=== PATIENT | male | born 2000 | race Caucasian/White ===

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

== ENCOUNTER 2019-04-29 23:38 | Emergency (ER) | payer OTHER ==
[2019-04-30 00:05] VITALS: BP 106/58; PULSE 84; RESP 14; TEMP 97.9
--- NOTE | 2019-04-30 00:37 | ED ---
Psych HPI - General Chief Complaint: Psychiatric Symptoms Stated Complaint: Mental Health Time Seen by Provider: 04/30/19 00:12 Source: patient, family Mode of arrival: ambulatory - History of Present Illness Initial Comments: This patient is a 18-year-old man who presents to be evaluated for compulsive stealing. Patient also reportedly had altercation with family and then had threatened to kill his sister as well as kill himself. Patient states that the convulsions to steal a been going on for months. [facility] is [facility], and Dr. García is also managing his medications. He is currently taking as well as lithium. He states that he is compliant with his medications. MD Complaint: other -: month(s) Associated Psychiatric Symptoms: other History of same: Yes Quality: constant Improves With: none Worsens With: none Associated Symptoms: denies other symptoms - Related Data Home Medications Medication Instructions Recorded Confirmed [place] Carbonate 300 mg PO HS 04/30/19 04/30/19 Sertraline [Zoloft] 200 mg PO DAILY 04/30/19 Allergies Allergy/AdvReac Type Severity Reaction Status Date / Time No Known Allergies Allergy Verified 04/30/19 00:05 Review of Systems ROS Statement: Those systems with pertinent positive or pertinent negative responses have been documented in the HPI. ROS Other: All systems not noted in ROS Statement are negative. Constitutional: Denies: fever, chills Respiratory: Denies: cough, dyspnea Cardiovascular: Denies: chest pain, palpitations, syncope Gastrointestinal: Denies: abdominal pain, vomiting, diarrhea Genitourinary: Denies: dysuria Musculoskeletal: Denies: back pain Skin: Denies: rash Neurological: Denies: headache, weakness, numbness Psychiatric: Reports: as per HPI, other (Compulsive stealing). Denies: depression, auditory hallucinations, visual hallucinations Past Medical History Past Medical History: No Reported History History of Any Multi-Drug Resistant Organisms: None Reported Past Surgical History: No Surgical Hx Reported Past Psychological History: Anxiety, Depression Smoking Status: Current every day smoker Past Alcohol Use History: None Reported Past Drug Use History: None Reported General Exam Limitations: no limitations General appearance: alert, in no apparent distress Head exam: Present: atraumatic, normocephalic Eye exam: Present: normal appearance. Absent: scleral icterus, conjunctival injection ENT exam: Present: normal oropharynx Respiratory exam: Present: normal lung sounds bilaterally. Absent: respiratory distress, wheezes, rales, rhonchi, stridor Cardiovascular Exam: Present: regular rate, normal rhythm, normal heart sounds. Absent: systolic murmur, diastolic murmur, rubs, gallop GI/Abdominal exam: Present: soft. Absent: distended, tenderness, guarding, rebound, rigid, mass Extremities exam: Present: normal inspection, normal capillary refill. Absent: pedal edema, calf tenderness Back exam: Present: normal inspection. Absent: CVA tenderness (R), CVA tenderness (L) Neurological exam: Present: alert Psychiatric exam: Present: normal affect, normal mood, other (Complains of compulsive thoughts of stealing). Absent: depressed, agitated, anxious, flat affect, manic Skin exam: Present: warm, dry, intact, normal color. Absent: rash Course Vital Signs 04/29/19 23:57 Temperature 97.9 F Pulse Rate 84 Respiratory 14 Rate Blood Pressure 106/58 O2 Sat by Pulse 99 Oximetry Disposition Clinical Impression: Behavioral disorder Disposition: HOME SELF-CARE Condition: Fair Instructions (If sedation given, give patient instructions): Conduct Disorder (ED) Is patient prescribed a controlled substance at d/c from ED?: No Referrals: Mickey Ventura MD [Primary Care Provider] - 1-2 days
== END 2019-04-30 02:48 | disposition home or self-care (01) ==
LOC: EC 23:38
DX: F63.2 Kleptomania (principal); R45.850 Homicidal ideations; R45.851 Suicidal ideations; F32.9 Major depressive disorder, single episode, unspecified; F41.9 Anxiety disorder, unspecified; F17.200 Nicotine dependence, unspecified, uncomplicated; Z79.899 Other long term (current) drug therapy
CPT/HCPCS: 82075; 99285

== ENCOUNTER 2019-07-16 11:24 | Emergency (ER) | payer OTHER ==
[2019-07-16 11:42] VITALS: RESP 18
--- NOTE | 2019-07-16 12:26 | ED ---
Psych HPI - General Chief Complaint: Psychiatric Symptoms Stated Complaint: Mental health Time Seen by Provider: 07/16/19 11:38 Source: patient, family Mode of arrival: ambulatory - History of Present Illness Initial Comments: 18yo male presented for suicidal thoughts. Patient is brought in by mother he was petitioned for evaluation. Patient states that he found out there was a warrant out for his arrest this caused him significant stress andhe felt like he disappointed to his parents. This caused him to become very anxious this morning. He states he left the house in a fury, family bedside states they werent home but he was calling them appearing manic like. He states he began driving around. Patient states that he did not be a burden to his parents anymore, family fel this comment was alarming for suicidal ideation and patient was brought to the ER for evaluaton. Upon arrival patient denies any suicidal or homicidal ideation. He states he regrets making that comment. He states he does not want to be here. He states he he did settle things out of stress in fear of having a worn out for his arrest. remaining ROS (-). - Related Data Home Medications Medication Instructions Recorded Confirmed [place] Carbonate 600 mg PO HS 04/30/19 07/16/19 Sertraline [Zoloft] 50 mg PO DIRECTED 04/30/19 07/16/19 ARIPiprazole [Abilify] 5 mg PO DIRECTED 07/16/19 07/16/19 Levothyroxine Sodium [Synthroid] 50 mcg PO DAILY 07/16/19 07/16/19 Allergies Allergy/AdvReac Type Severity Reaction Status Date / Time No Known Allergies Allergy Verified 07/16/19 12:02 Review of Systems ROS Statement: Those systems with pertinent positive or pertinent negative responses have been documented in the HPI. ROS Other: All systems not noted in ROS Statement are negative. Past Medical History Past Medical History: No Reported History History of Any Multi-Drug Resistant Organisms: None Reported Past Surgical History: No Surgical Hx Reported Past Psychological History: Anxiety, Depression Smoking Status: Current every day smoker Past Alcohol Use History: None Reported Past Drug Use History: None Reported General Exam - General Exam Comments Initial Comments: General: The patient is awake and alert, in no distress, and does not appear acutely ill. Eye: Pupils are equal, round and reactive to light, extra-ocular movements are intact. No nystagmus. There is normal conjunctiva bilaterally. No signs of icterus. Ears, nose, mouth and throat: There are moist mucous membranes and no oral lesions. Neck: The neck is supple, there is no tenderness or JVD. Cardiovascular: There is a regular rate and rhythm. No murmur, rub or gallop is appreciated. Respiratory: Lungs are clear to auscultation, respirations are non-labored, breath sounds are equal. No wheezes, stridor, rales, or rhonchi. Gastrointestinal: Soft, non-distended, non-tender abdomen without masses or organomegaly noted. There is no rebound or guarding present. Musculoskeletal: Normal ROM, no tenderness. Strength 5/5. Sensation intact. Pulses equal bilaterally 2+. Neurological: A&O x 3. CN II-XII intact, There are no obvious motor or sensory deficits. Coordination appears grossly intact. Speech is normal. Skin: Skin is warm and dry and no rashes or lesions are noted. Psychiatric: Cooperative, appropriate mood & affect, normal judgment. Limitations: no limitations Course Vital Signs 07/16/19 07/16/19 11:38 15:07 Temperature 98.4 F 98.2 F Pulse Rate 82 77 Respiratory 18 18 Rate Blood Pressure 98/62 101/62 O2 Sat by Pulse 97 97 Oximetry Medical Decision Making - Medical Decision Making 18-year-old male presenting for suicidal ideations. Patient denies plan. Patient states that he made these comments out of fear. Patient states that he does not feel suicidal he states he is not homicidal. Patient is about a bite psychiatric services. It was recommended patient be discharged. Safety plan in place. Patient is agreeable this care plan I reevaluated patient he continues to deny suicidal or homicidal ideations. Patient appears sincere. At this time feel patient is stable for discharge with outpatient safety plan as in place and counseling. Patient is agreeable and was discharged appearing well - Lab Data Lab Results 07/16/19 Range/Units 12:19 Urine Color Light Yellow Urine Appearance Clear (Clear) Urine pH 7.0 (5.0-8.0) Ur Specific [place] 1.011 (1.001-1.035) Urine Protein Negative (Negative) Urine Glucose (UA) Negative (Negative) Urine Ketones Negative (Negative) Urine Blood Negative (Negative) Urine Nitrite Negative (Negative) Urine Bilirubin Negative (Negative) Urine Urobilinogen <2.0 (<2.0) mg/dL Ur Leukocyte Esterase Small H (Negative) Urine RBC 1 (0-5) /hpf Urine WBC 2 (0-5) /hpf Ur Squamous Epith Cells <1 (0-4) /hpf Urine Bacteria Rare H (None) /hpf Urine Opiates Screen Not Detected (NotDetected) Ur Oxycodone Screen Not Detected (NotDetected) Urine Methadone Screen Not Detected (NotDetected) Ur Propoxyphene Screen Not Detected (NotDetected) Ur Barbiturates Screen Not Detected (NotDetected) U Tricyclic Antidepress Not Detected (NotDetected) Ur Phencyclidine Scrn Not Detected (NotDetected) Ur Amphetamines Screen Not Detected (NotDetected) U Methamphetamines Scrn Not Detected (NotDetected) U Benzodiazepines Scrn Not Detected (NotDetected) Urine Cocaine Screen Not Detected (NotDetected) U Marijuana (THC) Screen Not Detected (NotDetected) Disposition Clinical Impression: Depression Disposition: HOME SELF-CARE Condition: Good Instructions (If sedation given, give patient instructions): Depression (ED) Additional Instructions: Please use medication as discussed. Please follow-up with your counseling, [facility] as discussed today. Please return to emergency room if the symptoms increase or worsen or for any other concerns. Is patient prescribed a controlled substance at d/c from ED?: No Referrals: Mickey Ventura MD [Primary Care Provider] - 1-2 days Time of Disposition: 14:34
[2019-07-16 12:58] LABS: Amphetamine Screen,Urine Not Detected (NotDetected); Barbiturate Screen,Urine Not Detected (NotDetected); Benzodiazepines Screen,Urine Not Detected (NotDetected); Cocaine Screen,Urine Not Detected (NotDetected); Methadone Screen, Urine Not Detected (NotDetected); Opiate Screen,Urine Not Detected (NotDetected); Oxycodone Screen, Urine Not Detected (NotDetected); Phencyclidine Screen,Urine Not Detected (NotDetected); Tricyclic Antidepressant,Urine Not Detected (NotDetected); Urn Cannabinoid Scrn Not Detected (NotDetected)
[2019-07-16 13:12] LABS: Appearance,Urine Clear (Clear); Bacteria,Urine Rare /hpf; Bilirubin,Urine Negative (Negative); Blood,Urine Negative (Negative); Color,Urine Light Yellow; Glucose,Urine (UA) Negative (Negative); Ketones,Urine Negative (Negative); Leukocyte Esterase,Urine Small (Negative); Nitrite,Urine Negative (Negative); Protein,Urine Negative (Negative); RBC,Urine 1 /hpf (0-5); Specific Gravity,Urine 1.011 (1.001-1.035); Squamous Epithelial Cell,Urine <1 /hpf (0-4); Urobilinogen,Urine <2.0 mg/dL (<2.0); WBC,Urine 2 /hpf (0-5)
[2019-07-16] MEDS ORDERED: ACETAMINOPHEN TAB 325 MG TAB PO STA (13:19)
[2019-07-16 15:20] VITALS: BP 101/62; PULSE 77; TEMP 98.2
== END 2019-07-16 15:07 | disposition home or self-care (01) ==
LOC: EC 11:24
DX: F32.9 Major depressive disorder, single episode, unspecified (principal); F41.9 Anxiety disorder, unspecified; F17.200 Nicotine dependence, unspecified, uncomplicated; Z79.899 Other long term (current) drug therapy; Z79.890 Hormone replacement therapy
CPT/HCPCS: 80306; 81001; 82075; 99285